=== PATIENT | female | born 1955 | race Caucasian/White ===

== ENCOUNTER 2017-09-22 11:44 | Outpatient (CLI) | payer BC | END 2017-09-22 23:59 | disposition home or self-care (01) | LOC: RT 11:44 | PROVIDERS: ATTEND Internal Medicine Critical Care Medicine | DX: J84.9 Interstitial pulmonary disease, unspecified (principal); L30.9 Dermatitis, unspecified; F41.9 Anxiety disorder, unspecified; G62.9 Polyneuropathy, unspecified; Z87.898 Personal history of other specified conditions | CPT/HCPCS: 94618 ==